=== PATIENT | female | born 1995 | race Caucasian/White ===

== ENCOUNTER 2019-09-27 04:11 | Inpatient (IN) | payer BC ==
[2019-09-27] MEDS ORDERED: Nalbuphine 10 MG/1 ML Vial IVPUSH PRN (05:21)
[2019-09-27] MEDS ORDERED: Sodium Chloride 0.9% 10 ML Syringe FLUSH PRN (05:21)
[2019-09-27] MEDS ORDERED: Oxytocin/Lactated Ringers 10 UNIT/1,000 ML BAG IV SCH ×2 (05:30→13:29)
[2019-09-27] MEDS ORDERED: ceFAZolin 2 GM in Premix Bag 1 BAG IV ONE (05:45)
[2019-09-27] MEDS: Lactated Ringers 1,000 ML IV SCH ×2 (05:45→07:37)
[2019-09-27] MEDS ORDERED: ceFAZolin 2 GM in Premix Bag 1 BAG IV SCH (06:00)
[2019-09-27] MEDS ORDERED: fentaNYL/Bupivacaine/NS 2 MCG-0.125% 250 ML EPIDUR PRN (06:26)
[2019-09-27] MEDS ORDERED: fentaNYL 100 MCG/2 ML SDV EPIDUR PRN (06:26)
[2019-09-27] MEDS ORDERED: Ondansetron 4 MG/2 ML SDV IVPUSH PRN (06:26)
[2019-09-27] MEDS ORDERED: ePHEDrine 50 MG/ML SDV IVPUSH PRN (06:26)
--- NOTE | 2019-09-27 06:28 | PCM.PREANE ---
Preanesthetic Assessment - Anesthesia/Transfusion/Family Hx Anesthesia History: Prior Anesthesia Without Reaction Family History of Anesthesia Reaction: No Transfusion History: No Prior Transfusion(s) Intubation History: Unknown - Review of Systems General: No Symptoms Pulmonary: No Symptoms Cardiovascular: No Symptoms Gastrointestinal: No Symptoms Neurological: No Symptoms Other: Reports: None - Physical Assessment NPO Status Date: 09/26/19 NPO Status Time: 20:30 Vital Signs: Last Vital Signs Temp 36.7 C 09/27/19 04:30 Pulse 93 09/27/19 04:30 Resp 16 09/27/19 04:30 BP 136/76 09/27/19 04:30 Pulse Ox 98 09/27/19 04:30 Height: 1.8 m Weight: 99.065 kg ASA Class: 2 Mental Status: Alert & Oriented x3 Airway Class: Mallampati = 2 Dentition: Reports: Normal Dentition, Caries Thyro-Mental Finger Breadths: 3 Mouth Opening Finger Breadths: 3 ROM/Head Extension: Full Lungs: Clear to Auscultation, Normal Respiratory Effort Cardiovascular: Regular Rate, Regular Rhythm, No Murmurs - Lab Values: Laboratory Last Values WBC 25.11 K/mm3 (3.98-10.04) H 09/27/19 05:38 RBC 4.32 M/mm3 (3.98-5.22) 09/27/19 05:38 Hgb 11.1 gm/dl (11.2-15.7) L 09/27/19 05:38 Hct 34.6 % (34.1-44.9) 09/27/19 05:38 MCV 80.1 fl (79.4-94.8) 09/27/19 05:38 MCH 25.7 pg (25.6-32.2) 09/27/19 05:38 MCHC 32.1 g/dl (32.2-35.5) L 09/27/19 05:38 RDW Std Deviation 42.3 fL (36.4-46.3) 09/27/19 05:38 Plt Count 376 K/mm3 (182-369) H 09/27/19 05:38 MPV 10.8 fl (9.4-12.3) 09/27/19 05:38 Neut % (Auto) 87.0 % (34.0-71.1) H 09/27/19 05:38 Lymph % (Auto) 6.5 % (19.3-51.7) L 09/27/19 05:38 [place] % (Auto) 5.6 % (4.7-12.5) 09/27/19 05:38 Eos % (Auto) 0.1 (0.7-5.8) L 09/27/19 05:38 Baso % (Auto) 0.2 % (0.1-1.2) 09/27/19 05:38 Neut # (Auto) 21.86 K/mm3 (1.56-6.13) H 09/27/19 05:38 Lymph # (Auto) 1.63 K/mm3 (1.18-3.74) 09/27/19 05:38 [place] # (Auto) 1.40 K/mm3 (0.24-0.36) H 09/27/19 05:38 Eos # (Auto) 0.02 K/mm3 (0.04-0.36) L 09/27/19 05:38 Baso # (Auto) 0.04 K/mm3 (0.01-0.08) 09/27/19 05:38 Urine Color Yellow (Yellow) 09/27/19 04:45 Urine Appearance Clear (Clear) 09/27/19 04:45 Urine pH 6.0 (5.0-8.0) 09/27/19 04:45 Ur Specific [place] > or = 1.030 (1.005-1.030) 09/27/19 04:45 Urine Protein Negative (Negative) 09/27/19 04:45 Urine Glucose (UA) Negative (Negative) 09/27/19 04:45 Urine Ketones Trace (Negative) H 09/27/19 04:45 Urine Occult Blood 1+ (Negative) H 09/27/19 04:45 Urine Nitrite Negative (Negative) 09/27/19 04:45 Urine Bilirubin Negative (Negative) 09/27/19 04:45 Urine Urobilinogen 0.2 (0.2-1.0) 09/27/19 04:45 Ur Leukocyte Esterase Negative (Negative) 09/27/19 04:45 Urine RBC 0-5 /hpf (0-5) 09/27/19 04:45 Urine WBC 0-5 /hpf (0-5) 09/27/19 04:45 Ur Epithelial Cells 0-5 /hpf (0-5) 09/27/19 04:45 Urine Bacteria Few /hpf (FEW) 09/27/19 04:45 Urine Mucus Few /hpf (FEW) 09/27/19 04:45 Membrane Rupture Positive H 09/27/19 04:56 Above labs reviewed and noted and within acceptable ranges to proceed with epidural if desired. - Allergies Allergies/Adverse Reactions: Allergies Allergy/AdvReac Type Severity Reaction Status Date / Time amoxicillin Allergy Swelling Verified 09/27/19 05:24 - Anesthesia Plan Pre-Op Medication Ordered: None - Acknowledgements Anesthesia Type Planned: Epidural Pt an Appropriate Candidate for the Planned Anesthesia: Yes Alternatives and Risks of Anesthesia Discussed w Pt/Guardian: Yes Pt/Guardian Understands and Agrees with Anesthesia Plan: Yes PreAnesthesia Questionnaire [employer] History: Reports: , Spontaneous - Past Surgical History Female Surgical History: Reports: D&C - SUBSTANCE USE Smoking Status *Q: Never Smoker Recreational Drug Use History: No - HOME MEDS Home Medications: Home Meds Pnv No.122/Iron/Folic Acid [ Multi Tablet] 1 each PO DAILY 09/27/19 [ History] - CURRENT (IN HOUSE) MEDS Current Meds: Current Medications Lactated Ringer's (Ringers, Lactated) 1,000 mls @ 100 mls/hr IV ASDIRECTED ERICA Last Admin: 09/27/19 05:45 Dose: 100 mls/hr Oxytocin/Lactated Ringer's (Pitocin In Lr 10 Units/1,000 Ml) 10 unit in 1,000 mls @ 500 mls/hr IV .CONTINUOUS ERICA Cefazolin Sodium/Dextrose 2 gm (/ Premix) 50 mls @ 100 mls/hr IV Q4HR ERICA Nalbuphine HCl (Nubain) 10 mg IVPUSH Q2H PRN PRN Reason: Pain Sodium Chloride (Saline Flush) 10 ml FLUSH ASDIRECTED PRN PRN Reason: Keep Vein Open Discontinued Medications Cefazolin Sodium/Dextrose 2 gm (/ Premix) 50 mls @ 100 mls/hr IV ONETIME ONE Stop: 09/27/19 06:14 Last Admin: 09/27/19 05:43 Dose: 100 mls/hr
[2019-09-27] MEDS ORDERED: Phenylephrine 1 MG in Sodium Chloride 0.9% 10 ML IV SCH (06:30)
--- NOTE | 2019-09-27 08:42 | PCM.LDHP ---
<David Martin - Last Filed: 09/27/19 09:47> L&D History of Present Illness - General Date of Service: 09/27/19 Admit Problem/Dx: Patient Status Order with Admit Dx/Problem 09/27/19 04:27 Patient Status [ADT] Routine 09/27/19 05:21 Patient Status [ADT] Routine Admission Diagnosis/Problem Admission Diagnosis/Problem Source of Information: Patient History Limitations: Reports: No Limitations - History of Present Illness Introduction:: Patient is a 24yo female at 37-3/7 weeks gestational age in active labor with spontaneous rupture of membranes. Pt began having contractions yesterday, increasing in intensity throughout the evening. Pt had spontaneous rupture of membranes around 0100 this morning. At that time her contractions were coming approximately every 5 minutes and lasting approximately 1 minute. She came to labor and delivery around 0400 this morning. Pain Score: 8 Present Illness Comments:: Sravani Vega is a 24yo female at 37 - 3/7 weeks gestation dated by definite LMP of 01/08/2019 (OLEG 10/15/2019) who presents with active labor after spontaneous rupture of membranes. She has had an overall uncomplicated and has had routine care with myself starting at 11 weeks gestational age. She had the TDaP vaccine on 08/12/2019. She declined the influenza vaccine. Her is complicated by: * GBS+ urinary tract infection * Rubella equivocal * History of recurrent miscarriages * Obesity labs Blood type: A+ Antibody screen: Negative First trimester hematocrit/hemoglobin: 38.8%/12.3g/dL on 02/06/2019 Platelets: 419,000 on 02/06/2019 Urine culture: Group B strep positive, mixed radha suggestive of contamination Rubella status: Equivocal Hepatitis B surface antigen: Negative RPR: Negative HIV: Negative Gonorrhea: Negative Chlamydia: Negative Anatomy ultrasound: 05/28/2019, normal anatomy, no abnormalities One hour glucose tolerance test: 167. 3-hour GTT normal. Second trimester hematocrit/hemoglobin: 32.1%/10.3 on 07/18/19 Platelets: 403 on 07/18/2019 GBS status: Positive Genetic testing: Declined. - Related Data Allergies/Adverse Reactions: Allergies Allergy/AdvReac Type Severity Reaction Status Date / Time amoxicillin Allergy Swelling Verified 09/27/19 05:24 Home Medications: Home Meds Pnv No.122/Iron/Folic Acid [ Multi Tablet] 1 each PO DAILY 09/27/19 [ History] Past Medical History [employer] History: Reports: , Spontaneous - Past Surgical History Female Surgical History: Reports: D&C Social & Family History - Family History Family Medical History: Noncontributory Endocrine/Metabolic: Reports: Diabetes, type II (Father, Paternal and maternal grandparents) Other Endocrine/Metabolic Family History: Sister has unspecified thyroid disease Oncologic: Reports: Brain (maternal uncle), Skin (Mother), Other (See Below) ( Mother- bladder cancer) - Tobacco Use Smoking Status *Q: Never Smoker - Recreational Drug Use Recreational Drug Use: No H&P Review of Systems - Review of Systems: Review Of Systems: See Below General: Reports: No Symptoms HEENT: Reports: No Symptoms Pulmonary: Reports: No Symptoms Cardiovascular: Reports: No Symptoms Gastrointestinal: Reports: No Symptoms Genitourinary: Reports: No Symptoms Musculoskeletal: Reports: No Symptoms Skin: Reports: No Symptoms Psychiatric: Reports: No Symptoms Neurological: Reports: No Symptoms Hematologic/Lymphatic: Reports: No Symptoms Immunologic: Reports: No Symptoms L&D Exam - Exam Exam: See Below - Vital Signs Vital Signs: Last Vital Signs Temp 98.1 F 09/27/19 04:30 Pulse 93 09/27/19 04:30 Resp 16 09/27/19 04:30 BP 136/76 09/27/19 04:30 Pulse Ox 98 09/27/19 04:30 Weight: 99.065 kg - Exam General: Alert, Oriented HEENT: Conjunctiva Clear, EACs Clear, EOMI, Hearing Intact, Mucosa Moist & [place] , Nares Patent, PERRLA Neck: Supple, Trachea Midline Lungs: Clear to Auscultation, Normal Respiratory Effort Cardiovascular: Regular Rate, Regular Rhythm GI/Abdominal Exam: Normal Bowel Sounds, Soft, Non-Tender, Pelvis Stable, Other ( Gravid) Rectal Exam: Deferred Genitourinary: Normal external exam Back Exam: Normal Inspection, Full Range of Motion Extremities: Normal Inspection, Non-Tender, No Pedal Edema, Normal Capillary Refill Skin: Warm, Dry, Intact Neurological: Cranial Nerves Intact, Reflexes Equal Bilateral Psychiatric: Alert, Normal Affect, Normal Mood - Patient Data Lab Results Last 24 hrs: Laboratory Results - last 24 hr 09/27/19 09/27/19 09/27/19 Range/Units 04:45 04:56 05:38 WBC 25.11 H (3.98-10.04) K/mm3 RBC 4.32 (3.98-5.22) M/mm3 Hgb 11.1 L (11.2-15.7) gm/dl Hct 34.6 (34.1-44.9) % MCV 80.1 (79.4-94.8) fl MCH 25.7 (25.6-32.2) pg MCHC 32.1 L (32.2-35.5) g/dl RDW Std Deviation 42.3 (36.4-46.3) fL Plt Count 376 H (182-369) K/mm3 MPV 10.8 (9.4-12.3) fl Neut % (Auto) 87.0 H (34.0-71.1) % Lymph % (Auto) 6.5 L (19.3-51.7) % [place] % (Auto) 5.6 (4.7-12.5) % Eos % (Auto) 0.1 L (0.7-5.8) Baso % (Auto) 0.2 (0.1-1.2) % Neut # (Auto) 21.86 H (1.56-6.13) K/mm3 Lymph # (Auto) 1.63 (1.18-3.74) K/mm3 [place] # (Auto) 1.40 H (0.24-0.36) K/mm3 Eos # (Auto) 0.02 L (0.04-0.36) K/mm3 Baso # (Auto) 0.04 (0.01-0.08) K/mm3 Manual Slide Review Abnormal smear Urine Color Yellow (Yellow) Urine Appearance Clear (Clear) Urine pH 6.0 (5.0-8.0) Ur Specific [place] > or = 1.030 (1.005-1.030) Urine Protein Negative (Negative) Urine Glucose (UA) Negative (Negative) Urine Ketones Trace H (Negative) Urine Occult Blood 1+ H (Negative) Urine Nitrite Negative (Negative) Urine Bilirubin Negative (Negative) Urine Urobilinogen 0.2 (0.2-1.0) Ur Leukocyte Esterase Negative (Negative) Urine RBC 0-5 (0-5) /hpf Urine WBC 0-5 (0-5) /hpf Ur Epithelial Cells 0-5 (0-5) /hpf Urine Bacteria Few (FEW) /hpf Urine Mucus Few (FEW) /hpf Membrane Rupture Positive H Result Diagrams: 09/27/19 05:38 - Problem List (1) 37 weeks gestation of SNOMED Code(s): 00207714 ICD Code: Z3A.37 - 37 WEEKS GESTATION OF Status: Acute Current Visit: Yes (2) GBS (group B streptococcus) UTI complicating SNOMED Code(s): 232299041, 50436539311762 ICD Code: O23.40 - UNSP INFECTION OF URINARY TRACT IN , UNSP TRIMESTER; B95.1 - STREPTOCOCCUS, GROUP B, CAUSING DISEASES CLASSD ELSWHR Status: Acute Current Visit: Yes (3) History of miscarriage SNOMED Code(s): 675651602 ICD Code: Z87.59 - PERSONAL HISTORY OF COMP OF PREG, CHLDBRTH AND THE PUERP Status: Acute Current Visit: Yes Problem List Initiated/Reviewed/Updated: Yes Orders Last 24hrs: Active Orders 24 hr Category Date Time Status Patient Status [ADT] Routine ADT 09/27/19 05:21 Active Activity as Tolerated [RC] PFP Care 09/27/19 05:21 Active Communication Order [RC] ASDIRECTED Care 09/27/19 05:21 Active Notify Provider [RC] ASDIRECTED Care 09/27/19 06:26 Active Notify Provider [RC] PFP Care 09/27/19 05:21 Active Notify Provider [RC] PRN Care 09/27/19 05:21 Active Oxygen Therapy [RC] ASDIRECTED Care 09/27/19 06:26 Active Peripheral IV Care [RC] Q2HR Care 09/27/19 05:21 Active Pulse Oximetry [RC] ASDIRECTED Care 09/27/19 06:26 Active Regular Diet [DIET] Diet 09/27/19 Breakfast Active RAPID PLASMA REAGIN,RPR [CHEM] Routine Lab 09/27/19 05:38 Received Bupivicaine/fentaNYL/NS [fentaNYL/Bupivacaine/NS 2 MCG- Med 09/27/19 06:26 Active 0.125% 250 ML] 0 ml EPIDUR CONTINUOUS PRN Lactated Ringers [Ringers, Lactated] 1,000 ml Med 09/27/19 05:30 Active IV ASDIRECTED Nalbuphine [Nubain] Med 09/27/19 05:21 Active 10 mg IVPUSH Q2H PRN Ondansetron [Zofran] Med 09/27/19 06:26 Active 4 mg IVPUSH ONETIME PRN Oxytocin/Lactated Ringers [Pitocin in LR 10 Units/1,000 Med 09/27/19 05:30 Active ML] 10 unit in 1,000 ml IV .CONTINUOUS Phenylephrine [Rico-Synephrine] 1 mg Med 09/27/19 06:30 Active Sodium Chloride 0.9% [Normal Saline] 10 ml IV TITRATE Sodium Chloride 0.9% [Saline Flush] Med 09/27/19 05:21 Active 10 ml FLUSH ASDIRECTED PRN ceFAZolin [Ancef] 1 gm Med 09/27/19 13:45 Active Premix Bag 1 bag IV Q8H ePHEDrine [ePHEDrine sulfate] Med 09/27/19 06:26 Active 5 mg IVPUSH ASDIRECTED PRN fentaNYL [Sublimaze] Med 09/27/19 06:26 Active 100 mcg EPIDUR Q3H PRN Electronic Heart Tones Ext w TOCO [WOMSER] Oth 09/27/19 05:21 Ordered Routine Electronic Heart Tones Internal [WOMSER] Per Unit Oth 09/27/19 05:21 Ordered Routine Peripheral IV Insertion Adult [OM.PC] Routine Oth 09/27/19 05:21 Ordered Resuscitation Status Routine Resus Stat 09/27/19 04:27 Ordered Medication Orders Ephedrine Sulfate (Ephedrine Sulfate) 5 mg IVPUSH ASDIRECTED PRN PRN Reason: Hypotension Fentanyl (Sublimaze) 100 mcg EPIDUR Q3H PRN PRN Reason: Pain Last Admin: 09/27/19 06:39 Dose: 100 mcg Fentanyl/Bupivacaine HCl (Fentanyl/Bupivacaine/Ns 2 Mcg-0.125% 250 Ml) 0 ml EPIDUR CONTINUOUS PRN PRN Reason: Pain Last Admin: 09/27/19 06:39 Dose: 250 ml Lactated Ringer's (Ringers, Lactated) 1,000 mls @ 100 mls/hr IV ASDIRECTED ERICA Last Admin: 09/27/19 07:37 Dose: 100 mls/hr Infusion: 09/27/19 07:37 Dose: 100 mls/hr Admin: 09/27/19 05:45 Dose: 100 mls/hr Oxytocin/Lactated Ringer's (Pitocin In Lr 10 Units/1,000 Ml) 10 unit in 1,000 mls @ 500 mls/hr IV .CONTINUOUS ERICA Phenylephrine HCl 1 mg/ Sodium (Chloride) 10.1 mls @ 1 mls/sec IV TITRATE ERICA; Protocol Cefazolin Sodium/Dextrose 1 gm (/ Premix) 50 mls @ 100 mls/hr IV Q8H ERICA Nalbuphine HCl (Nubain) 10 mg IVPUSH Q2H PRN PRN Reason: Pain Ondansetron HCl (Zofran) 4 mg IVPUSH ONETIME PRN PRN Reason: Nausea/Vomiting Sodium Chloride (Saline Flush) 10 ml FLUSH ASDIRECTED PRN PRN Reason: Keep Vein Open Assessment/Plan Comment:: Refer to observation for elective induction of labor Start Pitocin for augmentation of labor Cephalexin IV 2 gram loading dose plus 1 g every 8 hours of labor Continuous monitoring Place IV and have Lactated Ringer's at 125 ml/hr May have small amounts of regular diet Activity as tolerated May have epidural as desired Plans to breast-feed after delivery MMR vaccine post delivery due to rubella equivocal status Anticipate vaginal delivery unless otherwise indicated David Martin, MS3 09/27/2019 9:43am <Braden Acharya - Last Filed: 09/27/19 10:43> L&D History of Present Illness - General Admit Problem/Dx: Patient Status Order with Admit Dx/Problem 09/27/19 04:27 Patient Status [ADT] Routine 09/27/19 05:21 Patient Status [ADT] Routine Admission Diagnosis/Problem Admission Diagnosis/Problem L&D Exam - Vital Signs Vital Signs: Last Vital Signs Temp 36.7 C 09/27/19 04:30 Pulse 93 09/27/19 04:30 Resp 16 09/27/19 04:30 BP 136/76 09/27/19 04:30 Pulse Ox 98 09/27/19 04:30 - Patient Data Lab Results Last 24 hrs: Laboratory Results - last 24 hr 09/27/19 09/27/19 09/27/19 Range/Units 04:45 04:56 05:38 WBC 25.11 H (3.98-10.04) K/mm3 RBC 4.32 (3.98-5.22) M/mm3 Hgb 11.1 L (11.2-15.7) gm/dl Hct 34.6 (34.1-44.9) % MCV 80.1 (79.4-94.8) fl MCH 25.7 (25.6-32.2) pg MCHC 32.1 L (32.2-35.5) g/dl RDW Std Deviation 42.3 (36.4-46.3) fL Plt Count 376 H (182-369) K/mm3 MPV 10.8 (9.4-12.3) fl Neut % (Auto) 87.0 H (34.0-71.1) % Lymph % (Auto) 6.5 L (19.3-51.7) % [place] % (Auto) 5.6 (4.7-12.5) % Eos % (Auto) 0.1 L (0.7-5.8) Baso % (Auto) 0.2 (0.1-1.2) % Neut # (Auto) 21.86 H (1.56-6.13) K/mm3 Lymph # (Auto) 1.63 (1.18-3.74) K/mm3 [place] # (Auto) 1.40 H (0.24-0.36) K/mm3 Eos # (Auto) 0.02 L (0.04-0.36) K/mm3 Baso # (Auto) 0.04 (0.01-0.08) K/mm3 Manual Slide Review Abnormal smear Urine Color Yellow (Yellow) Urine Appearance Clear (Clear) Urine pH 6.0 (5.0-8.0) Ur Specific [place] > or = 1.030 (1.005-1.030) Urine Protein Negative (Negative) Urine Glucose (UA) Negative (Negative) Urine Ketones Trace H (Negative) Urine Occult Blood 1+ H (Negative) Urine Nitrite Negative (Negative) Urine Bilirubin Negative (Negative) Urine Urobilinogen 0.2 (0.2-1.0) Ur Leukocyte Esterase Negative (Negative) Urine RBC 0-5 (0-5) /hpf Urine WBC 0-5 (0-5) /hpf Ur Epithelial Cells 0-5 (0-5) /hpf Urine Bacteria Few (FEW) /hpf Urine Mucus Few (FEW) /hpf Membrane Rupture Positive H Result Diagrams: 09/27/19 05:38 - Problem List (1) Rubella non-immune status, antepartum SNOMED Code(s): 400999547 ICD Code: O99.89 - OTH DISEASES AND CONDITIONS COMPL PREG/CHLDBRTH; Z28.3 - UNDERIMMUNIZATION STATUS Status: Acute Current Visit: Yes (2) 37 weeks gestation of SNOMED Code(s): 84972022 ICD Code: Z3A.37 - 37 WEEKS GESTATION OF Status: Acute Current Visit: Yes (3) GBS (group B streptococcus) UTI complicating SNOMED Code(s): 788113416, [id number] ICD Code: O23.40 - UNSP INFECTION OF URINARY TRACT IN , UNSP TRIMESTER; B95.1 - STREPTOCOCCUS, GROUP B, CAUSING DISEASES CLASSD ELSWHR Status: Acute Current Visit: Yes (4) History of miscarriage SNOMED Code(s): 938494230 ICD Code: Z87.59 - PERSONAL HISTORY OF COMP OF PREG, CHLDBRTH AND THE PUERP Status: Acute Current Visit: Yes Orders Last 24hrs: Active Orders 24 hr Category Date Time Status Patient Status [ADT] Routine ADT 09/27/19 05:21 Active Activity as Tolerated [RC] PFP Care 09/27/19 05:21 Active Communication Order [RC] ASDIRECTED Care 09/27/19 05:21 Active Notify Provider [RC] ASDIRECTED Care 09/27/19 06:26 Active Notify Provider [RC] PFP Care 09/27/19 05:21 Active Notify Provider [RC] PRN Care 09/27/19 05:21 Active Oxygen Therapy [RC] ASDIRECTED Care 09/27/19 06:26 Active Peripheral IV Care [RC] Q2HR Care 09/27/19 05:21 Active Pulse Oximetry [RC] ASDIRECTED Care 09/27/19 06:26 Active Regular Diet [DIET] Diet 09/27/19 Breakfast Active RAPID PLASMA REAGIN,RPR [CHEM] Routine Lab 09/27/19 05:38 Received Bupivicaine/fentaNYL/NS [fentaNYL/Bupivacaine/NS 2 MCG- Med 09/27/19 06:26 Active 0.125% 250 ML] 0 ml EPIDUR CONTINUOUS PRN Lactated Ringers [Ringers, Lactated] 1,000 ml Med 09/27/19 05:30 Active IV ASDIRECTED Nalbuphine [Nubain] Med 09/27/19 05:21 Active 10 mg IVPUSH Q2H PRN Ondansetron [Zofran] Med 09/27/19 06:26 Active 4 mg IVPUSH ONETIME PRN Oxytocin/Lactated Ringers [Pitocin in LR 10 Units/1,000 Med 09/27/19 05:30 Active ML] 10 unit in 1,000 ml IV .CONTINUOUS Phenylephrine [Rico-Synephrine] 1 mg Med 09/27/19 06:30 Active Sodium Chloride 0.9% [Normal Saline] 10 ml IV TITRATE Sodium Chloride 0.9% [Saline Flush] Med 09/27/19 05:21 Active 10 ml FLUSH ASDIRECTED PRN ceFAZolin [Ancef] 1 gm Med 09/27/19 13:45 Active Premix Bag 1 bag IV Q8H ePHEDrine [ePHEDrine sulfate] Med 09/27/19 06:26 Active 5 mg IVPUSH ASDIRECTED PRN fentaNYL [Sublimaze] Med 09/27/19 06:26 Active 100 mcg EPIDUR Q3H PRN Electronic Heart Tones Ext w TOCO [WOMSER] Oth 09/27/19 05:21 Ordered Routine Electronic Heart Tones Internal [WOMSER] Per Unit Oth 09/27/19 05:21 Ordered Routine Peripheral IV Insertion Adult [OM.PC] Routine Oth 09/27/19 05:21 Ordered Resuscitation Status Routine Resus Stat 09/27/19 04:27 Ordered Medication Orders Ephedrine Sulfate (Ephedrine Sulfate) 5 mg IVPUSH ASDIRECTED PRN PRN Reason: Hypotension Fentanyl (Sublimaze) 100 mcg EPIDUR Q3H PRN PRN Reason: Pain Last Admin: 09/27/19 06:39 Dose: 100 mcg Fentanyl/Bupivacaine HCl (Fentanyl/Bupivacaine/Ns 2 Mcg-0.125% 250 Ml) 0 ml EPIDUR CONTINUOUS PRN PRN Reason: Pain Last Admin: 09/27/19 06:39 Dose: 250 ml Lactated Ringer's (Ringers, Lactated) 1,000 mls @ 100 mls/hr IV ASDIRECTED ERICA Last Admin: 09/27/19 07:37 Dose: 100 mls/hr Infusion: 09/27/19 07:37 Dose: 100 mls/hr Admin: 09/27/19 05:45 Dose: 100 mls/hr Oxytocin/Lactated Ringer's (Pitocin In Lr 10 Units/1,000 Ml) 10 unit in 1,000 mls @ 500 mls/hr IV .CONTINUOUS ERICA Phenylephrine HCl 1 mg/ Sodium (Chloride) 10.1 mls @ 1 mls/sec IV TITRATE ERICA; Protocol Cefazolin Sodium/Dextrose 1 gm (/ Premix) 50 mls @ 100 mls/hr IV Q8H ERICA Nalbuphine HCl (Nubain) 10 mg IVPUSH Q2H PRN PRN Reason: Pain Ondansetron HCl (Zofran) 4 mg IVPUSH ONETIME PRN PRN Reason: Nausea/Vomiting Sodium Chloride (Saline Flush) 10 ml FLUSH ASDIRECTED PRN PRN Reason: Keep Vein Open Assessment/Plan Comment:: I have seen and evaluated the patient with the medical student. I agree with the assessment and plan as per the note above. Braden Acharya M.D. 10:43 AM 09/27/2019
[2019-09-27] MEDS ORDERED: Lidocaine 1% 50 ML MDV INJECT ONE (13:00)
--- NOTE | 2019-09-27 13:22 | PCM.DEL ---
L & D Note - General Info Date of Service: 09/27/19 Mother's Due Date: 10/15/19 - Delivery Note Labor: Spontaneous Delivery Outcome: Livebirth Infant Delivery Method: Spontaneous Vaginal Delivery-Single Presentation: Right Occiput Anterior (ROOPA) Nuchal Cord: Present (tight and not reduced prior to delivery) Prep: Povidone-Iodine (Betadine Anesthesia Type: Epidural Anesthetic: Lidocaine (Xylocaine) 1% Plain (10 mL) Local Anesthetic Volume: Other (10 mL) Amniotic Fluid Description: Clear Episiotomy Type: None Laceration: 2nd Degree (midline perineal, repaired with 3-0 Vicryl), Periurethral (bilateral, hemostatic and not repaired) Suture type: Vicryl Suture size: 3-0 Placenta: Intact, Spontaneous Cord: 3 Vessels Estimated Blood Loss: 300 Resuscitation Needed: Yes : Suctioned, Bulb Syringe, Stimulated, Warmed, Renovo Used, Warmer Used Provider: Braden Acharya Score 1 min: 7 Score 5 min: 9 Second Stage Interventions: Reports: Pushing Effectively, Pushing, Stirrups/Leg Supports Delivery Comments (Free Text/Narrative):: Stage I: Susana Vega was admitted for spontaneous rupture of membranes. On admission her cervix was dilated to 4 cm. She was GBS positive with GBS bacteriuria. She has an allergy to amoxicillin and was treated with Ancef 2 g IV and received a total of 1 dose prior to delivery. She was given an epidural for anesthesia. She progressed to complete and pushing. Stage II: On 09/27/2019 she had a normal vaginal delivery of a live male infant at 12:43. Apgars of 7 & 9. Weight of 3050 g (6 lbs 11.6 oz). Length of 21.5 inches. There was a single tight nuchal cord that was not reduced prior to delivery. was delivered in ROOPA position. The cord was doubly clamped and cut by father of the infant. was placed on mother's abdomen and taken to the warmer for further resuscitation. Stage III: She had a spontaneous delivery of an intact placenta in Maribel presentation. Three vessel cord. She was given pitocin and fundal massage. She had a second-degree midline perineal laceration that was repaired with 3-0 Vicryl. There were bilateral periurethral lacerations that were hemostatic and not repaired. Mom and baby were stable to recovery. EBL of 300 mL. Braden Acharya MD 1:21 PM 09/27/2019 - General Info Date of Service: 09/27/19 - Patient Data Vitals - Most Recent: Last Vital Signs Temp 36.7 C 09/27/19 04:30 Pulse 93 09/27/19 04:30 Resp 16 09/27/19 04:30 BP 136/76 09/27/19 04:30 Pulse Ox 98 09/27/19 04:30 Weight - Most Recent: 99.065 kg I&O - Last 24 Hours: Intake & Output 09/26/19 09/27/19 09/27/19 22:59 06:59 14:59 Intake Total 1600 Output Total 525 Balance 1075 Lab Results Last 24 Hours: Laboratory Results - last 24 hr 09/27/19 09/27/19 09/27/19 Range/Units 04:45 04:56 05:38 WBC 25.11 H (3.98-10.04) K/mm3 RBC 4.32 (3.98-5.22) M/mm3 Hgb 11.1 L (11.2-15.7) gm/dl Hct 34.6 (34.1-44.9) % MCV 80.1 (79.4-94.8) fl MCH 25.7 (25.6-32.2) pg MCHC 32.1 L (32.2-35.5) g/dl RDW Std Deviation 42.3 (36.4-46.3) fL Plt Count 376 H (182-369) K/mm3 MPV 10.8 (9.4-12.3) fl Neut % (Auto) 87.0 H (34.0-71.1) % Lymph % (Auto) 6.5 L (19.3-51.7) % Worth % (Auto) 5.6 (4.7-12.5) % Eos % (Auto) 0.1 L (0.7-5.8) Baso % (Auto) 0.2 (0.1-1.2) % Neut # (Auto) 21.86 H (1.56-6.13) K/mm3 Lymph # (Auto) 1.63 (1.18-3.74) K/mm3 Worth # (Auto) 1.40 H (0.24-0.36) K/mm3 Eos # (Auto) 0.02 L (0.04-0.36) K/mm3 Baso # (Auto) 0.04 (0.01-0.08) K/mm3 Manual Slide Review Abnormal smear Urine Color Yellow (Yellow) Urine Appearance Clear (Clear) Urine pH 6.0 (5.0-8.0) Ur Specific [place] > or = 1.030 (1.005-1.030) Urine Protein Negative (Negative) Urine Glucose (UA) Negative (Negative) Urine Ketones Trace H (Negative) Urine Occult Blood 1+ H (Negative) Urine Nitrite Negative (Negative) Urine Bilirubin Negative (Negative) Urine Urobilinogen 0.2 (0.2-1.0) Ur Leukocyte Esterase Negative (Negative) Urine RBC 0-5 (0-5) /hpf Urine WBC 0-5 (0-5) /hpf Ur Epithelial Cells 0-5 (0-5) /hpf Urine Bacteria Few (FEW) /hpf Urine Mucus Few (FEW) /hpf Membrane Rupture Positive H Med Orders - Current: Current Medications Ephedrine Sulfate (Ephedrine Sulfate) 5 mg IVPUSH ASDIRECTED PRN PRN Reason: Hypotension Fentanyl (Sublimaze) 100 mcg EPIDUR Q3H PRN PRN Reason: Pain Last Admin: 09/27/19 06:39 Dose: 100 mcg Fentanyl/Bupivacaine HCl (Fentanyl/Bupivacaine/Ns 2 Mcg-0.125% 250 Ml) 0 ml EPIDUR CONTINUOUS PRN PRN Reason: Pain Last Admin: 09/27/19 06:39 Dose: 250 ml Lactated Ringer's (Ringers, Lactated) 1,000 mls @ 100 mls/hr IV ASDIRECTED ERICA Last Admin: 09/27/19 07:37 Dose: 100 mls/hr Oxytocin/Lactated Ringer's (Pitocin In Lr 10 Units/1,000 Ml) 10 unit in 1,000 mls @ 500 mls/hr IV .CONTINUOUS ERICA Last Admin: 09/27/19 12:47 Dose: 500 mls/hr Phenylephrine HCl 1 mg/ Sodium (Chloride) 10.1 mls @ 1 mls/sec IV TITRATE ERICA; Protocol Cefazolin Sodium/Dextrose 1 gm (/ Premix) 50 mls @ 100 mls/hr IV Q8H ERICA Nalbuphine HCl (Nubain) 10 mg IVPUSH Q2H PRN PRN Reason: Pain Ondansetron HCl (Zofran) 4 mg IVPUSH ONETIME PRN PRN Reason: Nausea/Vomiting Sodium Chloride (Saline Flush) 10 ml FLUSH ASDIRECTED PRN PRN Reason: Keep Vein Open Discontinued Medications Cefazolin Sodium/Dextrose 2 gm (/ Premix) 50 mls @ 100 mls/hr IV Q4HR [facility] Last Admin: 09/27/19 08:23 Dose: Not Given Cefazolin Sodium/Dextrose 2 gm (/ Premix) 50 mls @ 100 mls/hr IV ONETIME ONE Stop: 09/27/19 06:14 Last Admin: 09/27/19 05:43 Dose: 100 mls/hr Lidocaine HCl (Xylocaine 1%) 10 ml INJECT ONETIME ONE Stop: 09/27/19 13:01 Last Admin: 09/27/19 13:06 Dose: 10 ml - Problem List & Annotations (1) Rubella non-immune status, antepartum SNOMED Code(s): 808697969 Code(s): O99.89 - OTH DISEASES AND CONDITIONS COMPL PREG/CHLDBRTH; Z28.3 - UNDERIMMUNIZATION STATUS Status: Acute Current Visit: Yes (2) 37 weeks gestation of SNOMED Code(s): 21146371 Code(s): Z3A.37 - 37 WEEKS GESTATION OF Status: Acute Current Visit: Yes (3) GBS (group B streptococcus) UTI complicating SNOMED Code(s): 954884694, 51813146798421 Code(s): O23.40 - UNSP INFECTION OF URINARY TRACT IN , UNSP TRIMESTER; B95.1 - STREPTOCOCCUS, GROUP B, CAUSING DISEASES CLASSD ELSWHR Status: Acute Current Visit: Yes (4) History of miscarriage SNOMED Code(s): 269751739 Code(s): Z87.59 - PERSONAL HISTORY OF COMP OF PREG, CHLDBRTH AND THE PUERP Status: Acute Current Visit: Yes (5) Vaginal delivery SNOMED Code(s): 645290786 Code(s): O80 - ENCOUNTER FOR FULL-TERM UNCOMPLICATED DELIVERY Status: Acute Current Visit: Yes (6) Second degree perineal laceration during delivery SNOMED Code(s): 8088819 Code(s): O70.1 - SECOND DEGREE PERINEAL LACERATION DURING DELIVERY Status: Acute Current Visit: Yes (7) Laceration of periurethral tissue with delivery SNOMED Code(s): 255177204, 537311873 Code(s): O71.89 - OTHER SPECIFIED OBSTETRIC TRAUMA Status: Acute Current Visit: Yes - Problem List Review Problem List Initiated/Reviewed/Updated: Yes - My Orders Last 24 Hours: My Active Orders 09/27/19 04:27 Resuscitation Status Routine 09/27/19 05:21 Patient Status [ADT] Routine Activity as Tolerated [RC] PFP Communication Order [RC] ASDIRECTED Notify Provider [RC] PFP Notify Provider [RC] PRN Peripheral IV Care [RC] Q2HR Nalbuphine [Nubain] 10 mg IVPUSH Q2H PRN Sodium Chloride 0.9% [Saline Flush] 10 ml FLUSH ASDIRECTED PRN Electronic Heart Tones Ext w TOCO [WOMSER] Routine Electronic Heart Tones Internal [WOMSER] Per Unit Routine Peripheral IV Insertion Adult [OM.PC] Routine 09/27/19 05:30 Lactated Ringers [Ringers, Lactated] 1,000 ml IV ASDIRECTED Oxytocin/Lactated Ringers [Pitocin in LR 10 Units/1,000 ML] 10 unit in 1,000 ml IV .CONTINUOUS 09/27/19 05:38 RAPID PLASMA REAGIN,RPR [CHEM] Routine 09/27/19 13:10 Patient Status Manage Transfer [TRANSFER] Routine 09/27/19 13:45 ceFAZolin [Ancef] 1 gm Premix Bag 1 bag IV Q8H 09/27/19 Breakfast Regular Diet [DIET] - Plan Plan:: Admit to inpatient following normal spontaneous vaginal delivery Continue Pitocin per unit protocol following delivery of placenta and lactated Ringer's until tolerating regular diet Regular diet Vitals per unit routine Ibuprofen and Tylenol for pain control Assist with breast-feeding as needed Continue to monitor lochia MMR vaccine for rubella equivocal status Anticipate discharge home on day #2 Braden Acharya MD 1:21 PM 09/27/2019
[2019-09-27] MEDS ORDERED: Acetaminophen 325 MG Tab PO PRN (13:29)
[2019-09-27] MEDS ORDERED: Benzocaine/Menthol 20%-0.5% Spray 56 GM Canister TOP PRN (13:29)
[2019-09-27] MEDS ORDERED: Magnesium Hydroxide 400 MG/5 ML Susp 30 ML Cup PO PRN (13:29)
[2019-09-27] MEDS ORDERED: Measles, Mumps & Rubella Vaccine 0.5 ML SDV SUBCUT ONE (13:29)
[2019-09-27] MEDS ORDERED: Witch Hazel Medicated Pads 40/Jar TOP PRN (13:29)
[2019-09-27] MEDS ORDERED: Hydrocortisone Acetate 25 MG Supp RECTAL PRN (13:29)
[2019-09-27] MEDS ORDERED: ceFAZolin 1 GM in Premix Bag 1 BAG IV SCH (13:45)
[2019-09-27] MEDS ORDERED: Bupivacaine 0.25% 10 ML SDV ONE (14:00)
[2019-09-27] MEDS: Ibuprofen 600 MG Tab PO PRN (15:54)
[2019-09-28] MEDS: Ibuprofen 600 MG Tab PO PRN ×3 (00:17→20:49)
--- NOTE | 2019-09-28 08:37 | PCM.PNPP ---
<David Martin - Last Filed: 09/28/19 08:46> - General Info Date of Service: 09/28/19 Admission Dx/Problem (Free Text): Patient Status Order with Admit Dx/Problem 09/27/19 04:27 Patient Status [ADT] Routine 09/27/19 05:21 Patient Status [ADT] Routine Admission Diagnosis/Problem Admission Diagnosis/Problem Subjective Update: Pt is doing well today. She states she is very sore, but it is manageable. 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 She is tolerating oral intake well with no nausea and vomiting. She has been able to urinate, but has not yet had a bowel movement. She has been ambulating well and is having no leg pain and minimal swelling. She is and that has been going well. Functional Status: Reports: Pain Controlled - Review of Systems General: Reports: No Symptoms HEENT: Reports: No Symptoms Pulmonary: Reports: No Symptoms Cardiovascular: Reports: No Symptoms Gastrointestinal: Reports: No Symptoms Genitourinary: Reports: Burning, Pain Musculoskeletal: Reports: No Symptoms Skin: Reports: No Symptoms Neurological: Reports: No Symptoms Psychiatric: Reports: No Symptoms - General Info Date of Service: 09/28/19 - Patient Data Vital Signs - Most Recent: Last Vital Signs Temp 97.3 F 09/28/19 03:31 Pulse 80 09/28/19 03:31 Resp 14 09/28/19 03:31 BP 134/77 09/28/19 03:31 Pulse Ox 100 09/28/19 03:31 Weight - Most Recent: 99.065 kg I&O - Last 24 Hours: Intake & Output 09/27/19 09/28/19 09/28/19 23:59 06:59 14:59 Intake Total Balance Lab Results - Last 24 Hours: Laboratory Results - last 24 hr 09/27/19 09/28/19 Range/Units 05:38 05:40 WBC 25.23 H (3.98-10.04) K/mm3 RBC 3.58 L (3.98-5.22) M/mm3 Hgb 9.0 L D (11.2-15.7) gm/dl Hct 29.1 L (34.1-44.9) % MCV 81.3 (79.4-94.8) fl MCH 25.1 L (25.6-32.2) pg MCHC 30.9 L (32.2-35.5) g/dl RDW Std Deviation 42.5 (36.4-46.3) fL Plt Count 333 (182-369) K/mm3 MPV 10.9 (9.4-12.3) fl Neut % (Auto) 71.8 H (34.0-71.1) % Lymph % (Auto) 18.6 L (19.3-51.7) % Scott % (Auto) 8.2 (4.7-12.5) % Eos % (Auto) 0.3 L (0.7-5.8) Baso % (Auto) 0.3 (0.1-1.2) % Neut # (Auto) 18.13 H (1.56-6.13) K/mm3 Lymph # (Auto) 4.69 H (1.18-3.74) K/mm3 Scott # (Auto) 2.07 H (0.24-0.36) K/mm3 Eos # (Auto) 0.08 (0.04-0.36) K/mm3 Baso # (Auto) 0.07 (0.01-0.08) K/mm3 Manual Slide Review Abnormal smear RPR Non-reactive (NONREACTIVE) Med Orders - Current: Current Medications Acetaminophen (Tylenol) 650 mg PO Q6H PRN PRN Reason: mild pain or fever Benzocaine/Menthol (Dermoplast Pain Relief [place]) 0 gm TOP ASDIRECTED PRN PRN Reason: Perineal Comfort Measure Last Admin: 09/27/19 14:39 Dose: 1 applic Docusate Sodium (Colace) 100 mg PO BID PRN PRN Reason: Constipation Hydrocortisone Acetate (Anucort-Hc) 25 mg RECTAL BID PRN PRN Reason: Hemorrhoid pain Oxytocin/Lactated Ringer's (Pitocin In Lr 10 Units/1,000 Ml) 10 unit in 1,000 mls @ 100 mls/hr IV TITRATE ERICA; Protocol Ibuprofen (Motrin) 600 mg PO Q6H PRN PRN Reason: Mild pain or fever Last Admin: 09/28/19 06:44 Dose: 600 mg Magnesium Hydroxide (Milk Of Magnesia) 30 ml PO BEDTIME PRN PRN Reason: Constipation Prenat Multivit/[place]/Iron/Folic Ac ( Plus Iron) 1 each PO DAILY [facility] Suellen Marie (Tucks) 1 pad TOP ASDIRECTED PRN PRN Reason: Perineal Comfort Measure Last Admin: 09/27/19 14:39 Dose: 1 applic Discontinued Medications Bupivacaine HCl (Sensorcaine-Mpf 0.25%) 10 ml .ROUTE .STK-MED ONE Stop: 09/27/19 14:01 Ephedrine Sulfate (Ephedrine Sulfate) 5 mg IVPUSH ASDIRECTED PRN PRN Reason: Hypotension Fentanyl (Sublimaze) 100 mcg EPIDUR Q3H PRN PRN Reason: Pain Last Admin: 09/27/19 06:39 Dose: 100 mcg Fentanyl/Bupivacaine HCl (Fentanyl/Bupivacaine/Ns 2 Mcg-0.125% 250 Ml) 0 ml EPIDUR CONTINUOUS PRN PRN Reason: Pain Last Admin: 09/27/19 06:39 Dose: 250 ml Lactated Ringer's (Ringers, Lactated) 1,000 mls @ 100 mls/hr IV ASDIRECTED ERICA Last Admin: 09/27/19 07:37 Dose: 100 mls/hr Oxytocin/Lactated Ringer's (Pitocin In Lr 10 Units/1,000 Ml) 10 unit in 1,000 mls @ 500 mls/hr IV .CONTINUOUS ERICA Last Admin: 09/27/19 12:47 Dose: 500 mls/hr Cefazolin Sodium/Dextrose 2 gm (/ Premix) 50 mls @ 100 mls/hr IV Q4HR ERICA Last Admin: 09/27/19 08:23 Dose: Not Given Cefazolin Sodium/Dextrose 2 gm (/ Premix) 50 mls @ 100 mls/hr IV ONETIME ONE Stop: 09/27/19 06:14 Last Admin: 09/27/19 05:43 Dose: 100 mls/hr Phenylephrine HCl 1 mg/ Sodium (Chloride) 10.1 mls @ 1 mls/sec IV TITRATE ERICA; Protocol Cefazolin Sodium/Dextrose 1 gm (/ Premix) 50 mls @ 100 mls/hr IV Q8H [facility] Lidocaine HCl (Xylocaine 1%) 10 ml INJECT ONETIME ONE Stop: 09/27/19 13:01 Last Admin: 09/27/19 13:06 Dose: 10 ml Measles/Mumps/Rubella Vaccine Live (M-M-R Ii Vaccine) 0.5 ml SUBCUT .ONCE ONE Stop: 09/27/19 13:30 Nalbuphine HCl (Nubain) 10 mg IVPUSH Q2H PRN PRN Reason: Pain Ondansetron HCl (Zofran) 4 mg IVPUSH ONETIME PRN PRN Reason: Nausea/Vomiting Sodium Chloride (Saline Flush) 10 ml FLUSH ASDIRECTED PRN PRN Reason: Keep Vein Open - Infant Interaction Support Person: - Recovery Exam Fundal Tone: Firm Fundal Level: At Umbilicus Fundal Placement: Midline Lochia Amount: Small Lochia Color: Rubra/Red Perineum Description: Other (see below) Other Perinuem Description: second deg lac w/repair Episiotomy/Laceration: Approximated Bladder Status: Nonpalpable, Voiding Urinary Elimination: Voided - Exam General: Alert, Oriented HEENT: Pupils Equal Neck: Supple Lungs: Clear to Auscultation, Normal Respiratory Effort Cardiovascular: Regular Rate, Regular Rhythm GI/Abdominal Exam: Normal Bowel Sounds, Soft, Non-Tender Extremities: Normal Inspection, Normal Range of Motion, Non-Tender, Pedal Edema (mild) Skin: Warm, Dry, Intact Wound/Incisions: Healing Well Neurological: No New Focal Deficit Psy/Mental Status: Alert, Normal Affect, Normal Mood - Problem List & Annotations (1) 37 weeks gestation of SNOMED Code(s): 51333777 Code(s): Z3A.37 - 37 WEEKS GESTATION OF Status: Acute Current Visit: Yes (2) GBS (group B streptococcus) UTI complicating SNOMED Code(s): 497471736, 19715815806071 Code(s): O23.40 - UNSP INFECTION OF URINARY TRACT IN , UNSP TRIMESTER; B95.1 - STREPTOCOCCUS, GROUP B, CAUSING DISEASES CLASSD ELSWHR Status: Acute Current Visit: Yes (3) History of miscarriage SNOMED Code(s): 309690357 Code(s): Z87.59 - PERSONAL HISTORY OF COMP OF PREG, CHLDBRTH AND THE PUERP Status: Acute Current Visit: Yes - Problem List Review Problem List Initiated/Reviewed/Updated: Yes - Assessment Assessment:: 24yo s/p normal spontaneous vaginal delivery. PPD #1. complicated by GBS+ bacteriuria, and rubella equivocal status. - Plan Plan:: Regular diet Vitals per unit routine Ibuprofen and Tylenol for pain control Assist with breast-feeding as needed Continue to monitor lochia MMR vaccine for rubella equivocal status Anticipate discharge home on day #2 David Martin, MS3 09/28/2019 8:46 am <Braden Acharya - Last Filed: 09/28/19 08:58> - Patient Data Vital Signs - Most Recent: Last Vital Signs Temp 36.3 C 09/28/19 03:31 Pulse 80 09/28/19 03:31 Resp 14 09/28/19 03:31 BP 134/77 09/28/19 03:31 Pulse Ox 100 09/28/19 03:31 I&O - Last 24 Hours: Intake & Output 09/27/19 09/28/19 09/28/19 23:59 06:59 14:59 Intake Total Balance Lab Results - Last 24 Hours: Laboratory Results - last 24 hr 09/27/19 09/28/19 Range/Units 05:38 05:40 WBC 25.23 H (3.98-10.04) K/mm3 RBC 3.58 L (3.98-5.22) M/mm3 Hgb 9.0 L D (11.2-15.7) gm/dl Hct 29.1 L (34.1-44.9) % MCV 81.3 (79.4-94.8) fl MCH 25.1 L (25.6-32.2) pg MCHC 30.9 L (32.2-35.5) g/dl RDW Std Deviation 42.5 (36.4-46.3) fL Plt Count 333 (182-369) K/mm3 MPV 10.9 (9.4-12.3) fl Neut % (Auto) 71.8 H (34.0-71.1) % Lymph % (Auto) 18.6 L (19.3-51.7) % Scott % (Auto) 8.2 (4.7-12.5) % Eos % (Auto) 0.3 L (0.7-5.8) Baso % (Auto) 0.3 (0.1-1.2) % Neut # (Auto) 18.13 H (1.56-6.13) K/mm3 Lymph # (Auto) 4.69 H (1.18-3.74) K/mm3 Scott # (Auto) 2.07 H (0.24-0.36) K/mm3 Eos # (Auto) 0.08 (0.04-0.36) K/mm3 Baso # (Auto) 0.07 (0.01-0.08) K/mm3 Manual Slide Review Abnormal smear RPR Non-reactive (NONREACTIVE) Med Orders - Current: Current Medications Acetaminophen (Tylenol) 650 mg PO Q6H PRN PRN Reason: mild pain or fever Benzocaine/Menthol (Dermoplast Pain Relief [place]) 0 gm TOP ASDIRECTED PRN PRN Reason: Perineal Comfort Measure Last Admin: 09/27/19 14:39 Dose: 1 applic Docusate Sodium (Colace) 100 mg PO BID PRN PRN Reason: Constipation Hydrocortisone Acetate (Anucort-Hc) 25 mg RECTAL BID PRN PRN Reason: Hemorrhoid pain Oxytocin/Lactated Ringer's (Pitocin In Lr 10 Units/1,000 Ml) 10 unit in 1,000 mls @ 100 mls/hr IV TITRATE ERICA; Protocol Ibuprofen (Motrin) 600 mg PO Q6H PRN PRN Reason: Mild pain or fever Last Admin: 09/28/19 06:44 Dose: 600 mg Magnesium Hydroxide (Milk Of Magnesia) 30 ml PO BEDTIME PRN PRN Reason: Constipation Prenat Multivit/[place]/Iron/Folic Ac ( Plus Iron) 1 each PO DAILY [facility] Suellen Marie (Tucks) 1 pad TOP ASDIRECTED PRN PRN Reason: Perineal Comfort Measure Last Admin: 09/27/19 14:39 Dose: 1 applic Discontinued Medications Bupivacaine HCl (Sensorcaine-Mpf 0.25%) 10 ml .ROUTE .STK-MED ONE Stop: 09/27/19 14:01 Ephedrine Sulfate (Ephedrine Sulfate) 5 mg IVPUSH ASDIRECTED PRN PRN Reason: Hypotension Fentanyl (Sublimaze) 100 mcg EPIDUR Q3H PRN PRN Reason: Pain Last Admin: 09/27/19 06:39 Dose: 100 mcg Fentanyl/Bupivacaine HCl (Fentanyl/Bupivacaine/Ns 2 Mcg-0.125% 250 Ml) 0 ml EPIDUR CONTINUOUS PRN PRN Reason: Pain Last Admin: 09/27/19 06:39 Dose: 250 ml Lactated Ringer's (Ringers, Lactated) 1,000 mls @ 100 mls/hr IV ASDIRECTED ERICA Last Admin: 09/27/19 07:37 Dose: 100 mls/hr Oxytocin/Lactated Ringer's (Pitocin In Lr 10 Units/1,000 Ml) 10 unit in 1,000 mls @ 500 mls/hr IV .CONTINUOUS ERICA Last Admin: 09/27/19 12:47 Dose: 500 mls/hr Cefazolin Sodium/Dextrose 2 gm (/ Premix) 50 mls @ 100 mls/hr IV Q4HR ERICA Last Admin: 09/27/19 08:23 Dose: Not Given Cefazolin Sodium/Dextrose 2 gm (/ Premix) 50 mls @ 100 mls/hr IV ONETIME ONE Stop: 09/27/19 06:14 Last Admin: 09/27/19 05:43 Dose: 100 mls/hr Phenylephrine HCl 1 mg/ Sodium (Chloride) 10.1 mls @ 1 mls/sec IV TITRATE ERICA; Protocol Cefazolin Sodium/Dextrose 1 gm (/ Premix) 50 mls @ 100 mls/hr IV Q8H ERICA Lidocaine HCl (Xylocaine 1%) 10 ml INJECT ONETIME ONE Stop: 09/27/19 13:01 Last Admin: 09/27/19 13:06 Dose: 10 ml Measles/Mumps/Rubella Vaccine Live (M-M-R Ii Vaccine) 0.5 ml SUBCUT .ONCE ONE Stop: 09/27/19 13:30 Nalbuphine HCl (Nubain) 10 mg IVPUSH Q2H PRN PRN Reason: Pain Ondansetron HCl (Zofran) 4 mg IVPUSH ONETIME PRN PRN Reason: Nausea/Vomiting Sodium Chloride (Saline Flush) 10 ml FLUSH ASDIRECTED PRN PRN Reason: Keep Vein Open - Problem List & Annotations (1) Rubella non-immune status, antepartum SNOMED Code(s): 619396270 Code(s): O99.89 - OTH DISEASES AND CONDITIONS COMPL PREG/CHLDBRTH; Z28.3 - UNDERIMMUNIZATION STATUS Status: Acute Current Visit: Yes (2) 37 weeks gestation of SNOMED Code(s): 75742693 Code(s): Z3A.37 - 37 WEEKS GESTATION OF Status: Acute Current Visit: Yes (3) GBS (group B streptococcus) UTI complicating SNOMED Code(s): 877926188, 61769569515265 Code(s): O23.40 - UNSP INFECTION OF URINARY TRACT IN , UNSP TRIMESTER; B95.1 - STREPTOCOCCUS, GROUP B, CAUSING DISEASES CLASSD ELSWHR Status: Acute Current Visit: Yes (4) History of miscarriage SNOMED Code(s): 109529111 Code(s): Z87.59 - PERSONAL HISTORY OF COMP OF PREG, CHLDBRTH AND THE PUERP Status: Acute Current Visit: Yes (5) Vaginal delivery SNOMED Code(s): 575418120 Code(s): O80 - ENCOUNTER FOR FULL-TERM UNCOMPLICATED DELIVERY Status: Acute Current Visit: Yes (6) Second degree perineal laceration during delivery SNOMED Code(s): 9365111 Code(s): O70.1 - SECOND DEGREE PERINEAL LACERATION DURING DELIVERY Status: Acute Current Visit: Yes (7) Laceration of periurethral tissue with delivery SNOMED Code(s): 701685322, 497925235 Code(s): O71.89 - OTHER SPECIFIED OBSTETRIC TRAUMA Status: Acute Current Visit: Yes - My Orders Last 24 Hours: My Active Orders 09/27/19 13:29 Patient Status [ADT] Routine Activity as Tolerated [RC] PER UNIT ROUTINE May Shower [RC] ASDIRECTED Notify Provider Vital Signs [RC] ASDIRECTED Vital Signs [RC] 03,09,15,21 Acetaminophen [Tylenol] 650 mg PO Q6H PRN Benzocaine/Menthol [Dermoplast Pain Relief [place]] See Dose Instructions TOP ASDIRECTED PRN Docusate Sodium [Colace] 100 mg PO BID PRN Hydrocortisone Acetate [Anucort-HC] 25 mg RECTAL BID PRN Ibuprofen [Motrin] 600 mg PO Q6H PRN Magnesium Hydroxide [Milk of Magnesia] 30 ml PO BEDTIME PRN Oxytocin/Lactated Ringers [Pitocin in LR 10 Units/1,000 ML] 10 unit in 1,000 ml IV TITRATE Witch Cynthia [Tucks] 1 pad TOP ASDIRECTED PRN Assess Lochia [WOMSER] Per Unit Routine Assess Uterine Involution [WOMSER] Per Unit Routine Breast Pump [WOMSER] Per Unit Routine Heat Therapy [OM.PC] PRN Ice Therapy [OM.PC] Per Unit Routine Medication Administration Instruction [OM.PC] Routine Perineal Care [OM.PC] Per Unit Routine Peripheral IV Discontinue [OM.PC] Routine Sitz Bath [OM.PC] Per Unit Routine 09/27/19 Lunch Regular Diet [DIET] 09/28/19 09:00 Vit with Ca/FA/Iron [ Plus Iron] 1 each PO DAILY 09/28/19 13:29 Heat Therapy [OM.PC] PRN - Plan Plan:: I have seen and evaluated the patient with the medical student and agree with the assessment and plan as per the note above. No changes needed. Braden Acharya M.D. 8:58 AM 09/28/2019
--- NOTE | 2019-09-28 11:09 | PCM48HPAN ---
Post Anesthesia Note - EVALUATION WITHIN 48HRS OF ANESTHETIC Vital Signs in Normal Range: Yes Patient Participated in Evaluation: Yes Respiratory Function Stable: Yes Airway Patent: Yes Cardiovascular Function Stable: Yes Hydration Status Stable: Yes Pain Control Satisfactory: Yes Nausea and Vomiting Control Satisfactory: Yes Mental Status Recovered: Yes Vital Signs: Last Vital Signs Temp 36.8 C 09/28/19 10:05 Pulse 84 09/28/19 10:05 Resp 14 09/28/19 10:05 BP 117/83 09/28/19 10:05 Pulse Ox 96 09/28/19 10:05
[2019-09-28] MEDS: Prenatal Multivitamin with Calcium/Folic Acid/Iron Tab PO SCH (14:59)
[2019-09-28] MEDS: Docusate Sodium 100 MG Cap PO PRN (20:49)
[2019-09-29] MEDS: Ibuprofen 600 MG Tab PO PRN (08:00)
[2019-09-29] MEDS: Prenatal Multivitamin with Calcium/Folic Acid/Iron Tab PO SCH (08:00)
[2019-09-29] MEDS: Docusate Sodium 100 MG Cap PO PRN (08:00)
--- NOTE | 2019-09-29 08:19 | PCM.SN ---
- Free Text/Narrative Note: Post Progress Note PPD # 2 Subjective: Doing well overall. Ambulating without difficulty. Lochia minimal and decreasing since yesterday. Voiding without difficulty. Tolerating regular diet without nausea or vomiting. Pain controlled with oral medications. Reports her pain is improving today. Breast-feeding with some minor difficulty but working with the nursing staff. Objective: Vitals: Vital Signs - 24 hr 09/28/19 09/28/19 09/28/19 10:05 15:03 20:47 Temperature 36.8 C 36.6 C 36.8 C Pulse, 84 88 88 Peripheral Respiratory 14 14 16 Rate Blood Pressure 117/83 130/82 131/73 O2 Sat by Pulse 96 96 99 Oximetry 09/29/19 04:00 Temperature 37.1 C Pulse, 84 Peripheral Respiratory 15 Rate Blood Pressure 127/66 O2 Sat by Pulse 97 Oximetry Physical Exam General: Alert and oriented, no acute distress Lungs: Clear to auscultation bilaterally Heart: Regular rate and rhythm Abdomen: Soft, minimal appropriate tenderness, non-distended, fundus midline, nontender, and at the umbilicus Extremities: No edema ASSESSMENT: 24-year-old female 021 s/p normal vaginal delivery PPD #2, complicated by GBS bacteria and received one total dose of Ancef prior to delivery, rubella equivocal status, obesity and history of recurrent miscarriages PLAN: Doing well Breast-feeding with minimal difficulty. Assist as needed. Patient planning to work with senior sales consultant today for breast-feeding baby. Lochia minimal. Continue to monitor for appropriate lochia. Continue routine care MMR vaccine prior to discharge if desired. Discharge home today Braden Acharya MD 8:18 AM 09/29/2019
--- NOTE | 2019-09-29 08:27 | PCM.DCSUM1 ---
Discharge Summary - Hospital Course Free Text/Narrative:: Stage I: Susana Vega was admitted for spontaneous rupture of membranes. On admission her cervix was dilated to 4 cm. She was GBS positive with GBS bacteriuria. She has an allergy to amoxicillin and was treated with Ancef 2 g IV and received a total of 1 dose prior to delivery. She was given an epidural for anesthesia. She progressed to complete and pushing. Stage II: On 09/27/2019 she had a normal vaginal delivery of a live male at 12:43. Apgars of 7 & 9. Weight of 3050 g (6 lbs 11.6 oz). Length of 21.5 inches. There was a single tight nuchal cord that was not reduced prior to delivery. Infant was delivered in ROOPA position. The cord was doubly clamped and cut by father of the infant. was placed on mother's abdomen and taken to the warmer for further resuscitation. Stage III: She had a spontaneous delivery of an intact placenta in Maribel presentation. Three vessel cord. She was given pitocin and fundal massage. She had a second-degree midline perineal laceration that was repaired with 3-0 Vicryl. There were bilateral periurethral lacerations that were hemostatic and not repaired. Mom and baby were stable to recovery. EBL of 300 mL. HPI Initial Comments: Stage I: Susana Vega was admitted for spontaneous rupture of membranes. On admission her cervix was dilated to 4 cm. She was GBS positive with GBS bacteriuria. She has an allergy to amoxicillin and was treated with Ancef 2 g IV and received a total of 1 dose prior to delivery. She was given an epidural for anesthesia. She progressed to complete and pushing. Stage II: On 09/27/2019 she had a normal vaginal delivery of a live male at 12:43. Apgars of 7 & 9. Weight of 3050 g (6 lbs 11.6 oz). Length of 21.5 inches. There was a single tight nuchal cord that was not reduced prior to delivery. Infant was delivered in ROOPA position. The cord was doubly clamped and cut by father of the . was placed on mother's abdomen and taken to the warmer for further resuscitation. Stage III: She had a spontaneous delivery of an intact placenta in Maribel presentation. Three vessel cord. She was given pitocin and fundal massage. She had a second-degree midline perineal laceration that was repaired with 3-0 Vicryl. There were bilateral periurethral lacerations that were hemostatic and not repaired. Mom and baby were stable to recovery. EBL of 300 mL. Brief History: Stage I: Susana Vega was admitted for spontaneous rupture of membranes. On admission her cervix was dilated to 4 cm. She was GBS positive with GBS bacteriuria. She has an allergy to amoxicillin and was treated with Ancef 2 g IV and received a total of 1 dose prior to delivery. She was given an epidural for anesthesia. She progressed to complete and pushing. Stage II: On 09/27/2019 she had a normal vaginal delivery of a live male at 12:43. Apgars of 7 & 9. Weight of 3050 g (6 lbs 11.6 oz). Length of 21.5 inches. There was a single tight nuchal cord that was not reduced prior to delivery. was delivered in ROOPA position. The cord was doubly clamped and cut by father of the . Infant was placed on mother's abdomen and taken to the warmer for further resuscitation. Stage III: She had a spontaneous delivery of an intact placenta in Maribel presentation. Three vessel cord. She was given pitocin and fundal massage. She had a second-degree midline perineal laceration that was repaired with 3-0 Vicryl. There were bilateral periurethral lacerations that were hemostatic and not repaired. Mom and baby were stable to recovery. EBL of 300 mL. Diagnosis: Stroke: No - Discharge Data Discharge Date: 09/29/19 Discharge Disposition: Home, Self-Care 01 Condition: Good - Referral to Home Health Primary Care Physician: Braden Acharya MD - Discharge Diagnosis/Problem(s) (1) Rubella non-immune status, antepartum SNOMED Code(s): 104111950 ICD Code: O99.89 - OTH DISEASES AND CONDITIONS COMPL PREG/CHLDBRTH; Z28.3 - UNDERIMMUNIZATION STATUS Status: Acute (2) 37 weeks gestation of SNOMED Code(s): 11379760 ICD Code: Z3A.37 - 37 WEEKS GESTATION OF Status: Acute (3) GBS (group B streptococcus) UTI complicating SNOMED Code(s): 198234871, 98269703465016 ICD Code: O23.40 - UNSP INFECTION OF URINARY TRACT IN , UNSP TRIMESTER; B95.1 - STREPTOCOCCUS, GROUP B, CAUSING DISEASES CLASSD ELSWHR Status: Acute (4) History of miscarriage SNOMED Code(s): 851556982 ICD Code: Z87.59 - PERSONAL HISTORY OF COMP OF PREG, CHLDBRTH AND THE PUERP Status: Acute (5) Vaginal delivery SNOMED Code(s): 173504507 ICD Code: O80 - ENCOUNTER FOR FULL-TERM UNCOMPLICATED DELIVERY Status: Acute (6) Second degree perineal laceration during delivery SNOMED Code(s): 1065823 ICD Code: O70.1 - SECOND DEGREE PERINEAL LACERATION DURING DELIVERY Status : Acute (7) Laceration of periurethral tissue with delivery SNOMED Code(s): 771439216, 745781593 ICD Code: O71.89 - OTHER SPECIFIED OBSTETRIC TRAUMA Status: Acute - Patient Summary/Data Complications: None Consults: None Hospital Course: Susana Vega was admitted for spontaneous rupture membranes with clear fluid. On admission her cervix was dilated to 4 cm. She was GBS positive with GBS bacteria. She has an allergy to amoxicillin and was treated with Ancef 2 g IV and received 1 dose prior to delivery. She was given an epidural for anesthesia. She progressed to complete and began pushing. On 09/27/2019 she had a normal vaginal delivery of a live male infant at 12:43. Apgars of 7 and 9. Weight of 3050 g (6 pounds 11.6 ounces). Her course was uneventful. Her pain was well controlled and she had minimal lochia. She was ambulating, tolerating a regular diet and voiding normally. She was breast- feeding with minimal difficulty. She was afebrile and her hematocrit was 29.1 on day #1. She desired to be discharged home on the morning of PPD # 2. Her blood type is A+. She is rubella equivocal and declined MMR vaccine prior to discharge. She was given influenza vaccine prior to discharge. - Patient Instructions Diet: Regular Diet as Tolerated Activity: Apply Ice, As Tolerated Activity, Other: Nothing in the vagina for 6 weeks Driving: May Drive Today Showering/Bathing: May Shower Notify Provider of: Fever, Increased Pain, Swelling and Redness, Drainage, Nausea and/or Vomiting Other/Special Instructions: Please contact your physician's office if you have heavy vaginal bleeding enough to soak a pad in less than an hour for several hours. Monitor for any signs of an infection in the breasts with severe pain or redness of the breast. - Discharge Plan *PRESCRIPTION DRUG MONITORING PROGRAM REVIEWED*: Not Applicable *COPY OF PRESCRIPTION DRUG MONITORING REPORT IN PATIENT FANTA: Not Applicable Home Medications: Home Meds Pnv No.122/Iron/Folic Acid [ Multi Tablet] 1 each PO DAILY 09/27/19 [ History] Acetaminophen [Tylenol] 650 mg PO Q6H PRN tablet 09/29/19 [Rx] Benzocaine/Menthol [Dermoplast Pain Relief [place]] 1 spray TOP ASDIRECTED PRN canister 09/29/19 [Rx] Docusate Sodium [Colace] 100 mg PO BID PRN cap 09/29/19 [Rx] Hydrocortisone Acetate [Anucort-HC] 25 mg RECTAL BID PRN supp 09/29/19 [Rx] Ibuprofen [Motrin] 600 mg PO Q6H PRN tablet 09/29/19 [Rx] Witch Cynthia [Tucks] 1 pad TOP ASDIRECTED PRN pad 09/29/19 [Rx] Patient Handouts: Vaginal Delivery, Care After, Care of a Perineal Tear Referrals: Braden Acharya MD [Primary Care Provider] - (Follow-up in 2 weeks for routine visit or earlier as needed.) - Discharge Summary/Plan Comment DC Time >30 min.: No - Patient Data Vitals - Most Recent: Last Vital Signs Temp 37.1 C 09/29/19 04:00 Pulse 84 09/29/19 04:00 Resp 15 09/29/19 04:00 BP 127/66 09/29/19 04:00 Pulse Ox 97 09/29/19 04:00 Weight - Most Recent: 99.065 kg I&O - Last 24 hours: Intake & Output 09/28/19 09/29/19 09/29/19 22:59 06:59 14:59 Intake Total 240 Balance 240 Med Orders - Current: Current Medications Acetaminophen (Tylenol) 650 mg PO Q6H PRN PRN Reason: mild pain or fever Benzocaine/Menthol (Dermoplast Pain Relief [place]) 0 gm TOP ASDIRECTED PRN PRN Reason: Perineal Comfort Measure Last Admin: 09/27/19 14:39 Dose: 1 applic Docusate Sodium (Colace) 100 mg PO BID PRN PRN Reason: Constipation Last Admin: 09/29/19 08:00 Dose: 100 mg Hydrocortisone Acetate (Anucort-Hc) 25 mg RECTAL BID PRN PRN Reason: Hemorrhoid pain Oxytocin/Lactated Ringer's (Pitocin In Lr 10 Units/1,000 Ml) 10 unit in 1,000 mls @ 100 mls/hr IV TITRATE ERICA; Protocol Ibuprofen (Motrin) 600 mg PO Q6H PRN PRN Reason: Mild pain or fever Last Admin: 09/29/19 08:00 Dose: 600 mg Magnesium Hydroxide (Milk Of Magnesia) 30 ml PO BEDTIME PRN PRN Reason: Constipation Prenat Multivit/[place]/Iron/Folic Ac ( Plus Iron) 1 each PO DAILY ERICA Last Admin: 09/29/19 08:00 Dose: 1 each Witch Cynthia (Tucks) 1 pad TOP ASDIRECTED PRN PRN Reason: Perineal Comfort Measure Last Admin: 09/27/19 14:39 Dose: 1 applic Discontinued Medications Bupivacaine HCl (Sensorcaine-Mpf 0.25%) 10 ml .ROUTE .[facility] Stop: 09/27/19 14:01 Ephedrine Sulfate (Ephedrine Sulfate) 5 mg IVPUSH ASDIRECTED PRN PRN Reason: Hypotension Fentanyl (Sublimaze) 100 mcg EPIDUR Q3H PRN PRN Reason: Pain Last Admin: 09/27/19 06:39 Dose: 100 mcg Fentanyl/Bupivacaine HCl (Fentanyl/Bupivacaine/Ns 2 Mcg-0.125% 250 Ml) 0 ml EPIDUR CONTINUOUS PRN PRN Reason: Pain Last Admin: 09/27/19 06:39 Dose: 250 ml Lactated Ringer's (Ringers, Lactated) 1,000 mls @ 100 mls/hr IV ASDIRECTED ERICA Last Admin: 09/27/19 07:37 Dose: 100 mls/hr Oxytocin/Lactated Ringer's (Pitocin In Lr 10 Units/1,000 Ml) 10 unit in 1,000 mls @ 500 mls/hr IV .CONTINUOUS ERICA Last Admin: 09/27/19 12:47 Dose: 500 mls/hr Cefazolin Sodium/Dextrose 2 gm (/ Premix) 50 mls @ 100 mls/hr IV Q4HR ERICA Last Admin: 09/27/19 08:23 Dose: Not Given Cefazolin Sodium/Dextrose 2 gm (/ Premix) 50 mls @ 100 mls/hr IV ONETIME ONE Stop: 09/27/19 06:14 Last Admin: 09/27/19 05:43 Dose: 100 mls/hr Phenylephrine HCl 1 mg/ Sodium (Chloride) 10.1 mls @ 1 mls/sec IV TITRATE ERICA; Protocol Cefazolin Sodium/Dextrose 1 gm (/ Premix) 50 mls @ 100 mls/hr IV Q8H ERICA Lidocaine HCl (Xylocaine 1%) 10 ml INJECT ONETIME ONE Stop: 09/27/19 13:01 Last Admin: 09/27/19 13:06 Dose: 10 ml Measles/Mumps/Rubella Vaccine Live (M-M-R Ii Vaccine) 0.5 ml SUBCUT .ONCE ONE Stop: 09/27/19 13:30 Nalbuphine HCl (Nubain) 10 mg IVPUSH Q2H PRN PRN Reason: Pain Ondansetron HCl (Zofran) 4 mg IVPUSH ONETIME PRN PRN Reason: Nausea/Vomiting Sodium Chloride (Saline Flush) 10 ml FLUSH ASDIRECTED PRN PRN Reason: Keep Vein Open
[2019-09-29] MEDS ORDERED: FLU Vacc QS2019-20(6MOS+)/PF 60 MCG/0.5 ML SYRINGE IM ONE (13:24)
== END 2019-09-29 14:20 | disposition home or self-care (01) | DRG 560 ==
LOC: JD.OB 04:11 → JD.OBCHECK 04:11 → JD.OB 05:21 → OBSVTOIN 12:43 → JD.MS 12:44 → JD.OB 17:41
PROVIDERS: ADMIT Obstetrics & Gynecology; ATTEND Obstetrics & Gynecology
PROC: 10E0XZZ Delivery of Products of Conception, External Approach (ICD-10-PCS; principal; 2019-09-27)
PROC: 0KQM0ZZ Repair Perineum Muscle, Open Approach (ICD-10-PCS; 2019-09-27)
PROC: 3E0R3BZ Introduction of Anesthetic Agent into Spinal Canal, Percutaneous Approach (ICD-10-PCS; 2019-09-27)
PROC: 3E02340 Introduction of Influenza Vaccine into Muscle, Percutaneous Approach (ICD-10-PCS; 2019-09-28)
PROC: 3E0234Z Introduction of Serum, Toxoid and Vaccine into Muscle, Percutaneous Approach (ICD-10-PCS; 2019-09-28)
DX: O98.82 Other maternal infectious and parasitic diseases complicating childbirth (principal); B95.1 Streptococcus, group B, as the cause of diseases classified elsewhere; O75.3 Other infection during labor; N39.0 Urinary tract infection, site not specified; O70.1 Second degree perineal laceration during delivery; O71.82 Other specified trauma to perineum and vulva; O69.1XX0 Labor and delivery complicated by cord around neck, with compression, not applicable or unspecified; O99.214 Obesity complicating childbirth; E66.9 Obesity, unspecified; Z37.0 Single live birth; Z3A.37 37 weeks gestation of pregnancy; Z23 Encounter for immunization
CPT/HCPCS: 01967; 36415; 51701; 51702; 59025; 59409; 81001; 84112; 85025; 86592; 90686; 90707; A9270-GY; J0690; J2001; J2590; J3010; J3490; J7120

== ENCOUNTER 2021-01-26 22:50 | Inpatient (IN) | payer BC ==
[2021-01-26] MEDS ORDERED: Nalbuphine 10 MG/1 ML Vial IVPUSH PRN (23:16)
[2021-01-26] MEDS ORDERED: Sodium Chloride 0.9% 10 ML Syringe FLUSH PRN (23:16)
--- NOTE | 2021-01-26 23:24 | PCM.LDHP ---
L&D History of Present Illness - General Date of Service: 01/26/21 Admit Problem/Dx: Admission Diagnosis/Problem Admission Diagnosis/Problem - History of Present Illness Introduction:: 25 year old at 38w3d presented to hospital complaining she has to push. PNC with Dr Acharya without complications other than elevated one hour normal three hour. On arrival 10 cm dilated. - Related Data Allergies/Adverse Reactions: Allergies Allergy/AdvReac Type Severity Reaction Status Date / Time amoxicillin Allergy Swelling Verified 09/27/19 05:24 Home Medications: Home Meds No122/Iron/Folic Acid [ Multi Tablet] 1 each PO DAILY 09/27/19 [History] Acetaminophen [Tylenol] 650 mg PO Q6H PRN tablet 09/29/19 [Rx] Benzocaine/Menthol [Dermoplast Pain Relief [place]] 1 spray TOP ASDIRECTED PRN canister 09/29/19 [Rx] Docusate Sodium [Colace] 100 mg PO BID PRN cap 09/29/19 [Rx] Hydrocortisone Acetate [Anucort-HC] 25 mg RECTAL BID PRN supp 09/29/19 [Rx] Ibuprofen [Motrin] 600 mg PO Q6H PRN tablet 09/29/19 [Rx] witch Velma [Tucks] 1 pad TOP ASDIRECTED PRN pad 09/29/19 [Rx] 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: , 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 - Past Surgical History Female Surgical History: Reports: D&C Social & Family History - Family History Family Medical History: No Pertinent Family History Endocrine/Metabolic: Reports: Diabetes, type II (Father, Paternal and maternal grandparents) Other Endocrine/Metabolic Family History: Sister has unspecified thyroid disease Oncologic: Reports: Brain (maternal uncle), Skin (Mother), Other (See Below) (Mother- bladder cancer) H&P Review of Systems - Review of Systems: Review Of Systems: See Below General: Denies: Fever, Chills HEENT: Reports: No Symptoms Pulmonary: Reports: No Symptoms Cardiovascular: Reports: No Symptoms Gastrointestinal: Reports: No Symptoms Genitourinary: Reports: No Symptoms Musculoskeletal: Reports: No Symptoms Skin: Reports: No Symptoms Psychiatric: Reports: No Symptoms Neurological: Reports: No Symptoms Hematologic/Lymphatic: Reports: No Symptoms Immunologic: Reports: No Symptoms L&D Exam - Exam Exam: See Below - OB Specific Contraction Intensity: Strong Movement: Active Heart Tones: Present Heart Tones per Min: 145 Presentation: Vertex - Cunningham Score Cunningham Score Consistency: Soft Cunningham Score Effacement: >80% Cunningham Score Dilation: > 5 cm Cunningham Score 's Station: +1, +2 - Exam General: Alert, Oriented HEENT: PERRLA, Conjunctiva Clear, EACs Clear, EOMI, Hearing Intact, Mucosa Moist & [place], Nares Patent, Normal Nasal Septum, Posterior Pharynx Clear, TMs Clear Neck: Supple, Trachea Midline Lungs: Clear to Auscultation, Normal Respiratory Effort Cardiovascular: Regular Rate, Regular Rhythm GI/Abdominal Exam: Normal Bowel Sounds, Soft, Non-Tender, No Organomegaly, No Distention, No Abnormal Bruit, No Mass, Pelvis Stable Back Exam: Normal Inspection, Full Range of Motion Extremities: Normal Inspection, Normal Range of Motion, Non-Tender, No Pedal Ed artie, Normal Capillary Refill Skin: Warm, Dry, Intact Neurological: Cranial Nerves Intact, Reflexes Equal Bilateral Psychiatric: Alert, Normal Affect, Normal Mood Problem List Initiated/Reviewed/Updated: Yes Orders Last 24hrs: Active Orders 24 hr Category Date Time Status Activity as Tolerated [RC] PFP Care 01/26/21 23:16 Ordered Communication Order [RC] ASDIRECTED Care 01/26/21 23:16 Ordered Heart Tones [RC] ASDIRECTED Care 01/26/21 23:16 Ordered Non Stress Test [RC] PER UNIT ROUTINE Care 01/26/21 23:16 Ordered Notify Provider [RC] PFP Care 01/26/21 23:16 Ordered Notify Provider [RC] PRN Care 01/26/21 23:16 Ordered Peripheral IV Care [RC] . DIRECTED Care 01/26/21 23:16 Ordered Vital Signs [RC] PER UNIT ROUTINE Care 01/26/21 23:16 Ordered Nothing Per Oral Diet [DIET] Diet 01/26/21 Breakfast Ordered CORONAVIRUS COVID-19 [place] [MOLEC] Stat Lab 01/26/21 23:18 Ordered RAPID PLASMA REAGIN,RPR [CHEM] Routine Lab 01/26/21 23:16 Ordered Lactated Ringers [Ringers, Lactated] 1,000 ml Med 01/26/21 23:30 Ordered IV ASDIRECTED Nalbuphine [Nubain] Med 01/26/21 23:16 Ordered 10 mg IVPUSH Q2H PRN Oxytocin/Lactated Ringers [Pitocin in LR 10 Units/1,000 Med 01/26/21 23:30 Ordered ML] 10 unit in 1,000 ml IV .CONTINUOUS Sodium Chloride 0.9% [Saline Flush] Med 01/26/21 23:16 Ordered 10 ml FLUSH ASDIRECTED PRN Electronic Heart Tones Ext w TOCO [WOMSER] Oth 01/26/21 23:16 Ordered Routine Electronic Heart Tones Internal [WOMSER] Per Unit Oth 01/26/21 23:16 Ordered Routine Peripheral IV Insertion Adult [OM.PC] Routine Oth 01/26/21 23:16 Ordered Resuscitation Status Routine Resus Stat 01/26/21 23:16 Ordered Medication Orders Oxytocin/Lactated Ringer's (Pitocin In Lr 10 Units/1,000 Ml) 10 unit in 1,000 mls @ 100 mls/hr IV .CONTINUOUS ERICA Lactated Ringer's (Ringers, Lactated) 1,000 mls @ 100 mls/hr IV ASDIRECTED ERICA Nalbuphine HCl (Nubain) 10 mg IVPUSH Q2H PRN PRN Reason: Pain Sodium Chloride (Saline Flush) 10 ml FLUSH ASDIRECTED PRN PRN Reason: Keep Vein Open Assessment/Plan Comment:: Term labor. Presented complete. Arrival to hospital at 1055. IV placed. Rapid delivery at 1105.
--- NOTE | 2021-01-26 23:27 | PCM.SN.2 ---
- Free Text/Narrative Note: Stage I - Patient presented in active labor. Found to be completely dilated. IV placed. Stage II - of viable female, weight 2910 at 2305 with 8/9 apgars. Head delivered in controlled manner over intact perineum. Body and shoulders atraumatically. Positive cry. To maternal abdomen. Cord clamped and cut. Cord blood collected. Stage III - of intact placenta. 3vc. No laceration. EBL 100
[2021-01-26] MEDS ORDERED: Lactated Ringers 1,000 ML IV SCH (23:30)
[2021-01-26] MEDS ORDERED: Oxytocin/Lactated Ringers 10 UNIT/1,000 ML BAG IV SCH (23:30)
--- NOTE | 2021-01-27 02:56 | PCM.PNPP ---
- General Info Date of Service: 01/27/21 Functional Status: Reports: Pain Controlled - Review of Systems General: Reports: No Symptoms HEENT: Reports: No Symptoms Pulmonary: Reports: No Symptoms Cardiovascular: Reports: No Symptoms Gastrointestinal: Reports: No Symptoms Genitourinary: Reports: No Symptoms Musculoskeletal: Reports: No Symptoms Skin: Reports: No Symptoms Neurological: Reports: No Symptoms Psychiatric: Reports: No Symptoms - General Info Date of Service: 01/27/21 - Patient Data Vital Signs - Most Recent: Last Vital Signs Temp 36.8 C 01/26/21 23:07 Pulse 89 01/26/21 23:07 Resp 18 01/26/21 23:07 BP 133/73 01/26/21 23:07 Pulse Ox Lab Results - Last 24 Hours: Laboratory Results - last 24 hr 01/27/21 Range/Units 00:40 SARS-CoV-2 RNA ([place]) Negative (NEGATIVE) Med Orders - Current: Current Medications Oxytocin/Lactated Ringer's (Pitocin In Lr 10 Units/1,000 Ml) 10 unit in 1,000 mls @ 100 mls/hr IV .CONTINUOUS ERICA Last Admin: 01/26/21 23:07 Dose: 100 mls/hr Documented by: Lactated Ringer's (Ringers, Lactated) 1,000 mls @ 100 mls/hr IV ASDIRECTED ERICA Nalbuphine HCl (Nubain) 10 mg IVPUSH Q2H PRN PRN Reason: Pain Sodium Chloride (Saline Flush) 10 ml FLUSH ASDIRECTED PRN PRN Reason: Keep Vein Open - Interaction Support Person: - Exam General: Alert, Oriented HEENT: Pupils Equal Neck: Supple Lungs: Normal Respiratory Effort Cardiovascular: Regular Rate GI/Abdominal Exam: Soft, Non-Tender, No Organomegaly, No Distention, No Abnormal Bruit, No Mass, Pelvis Stable Extremities: Normal Inspection, Normal Range of Motion, Non-Tender, No Pedal Edema, Normal Capillary Refill Skin: Warm, Dry, Intact Wound/Incisions: Healing Well Neurological: No New Focal Deficit Psy/Mental Status: Alert, Normal Affect, Normal Mood - Problem List Review Problem List Initiated/Reviewed/Updated: Yes - My Orders Last 24 Hours: My Active Orders 01/26/21 Breakfast Nothing Per Oral Diet [DIET] 01/26/21 23:16 Activity as Tolerated [RC] PFP Communication Order [RC] ASDIRECTED Heart Tones [RC] ASDIRECTED Non Stress Test [RC] PER UNIT ROUTINE Notify Provider [RC] PFP Notify Provider [RC] PRN Peripheral IV Care [RC] . DIRECTED Vital Signs [RC] PER UNIT ROUTINE Nalbuphine [Nubain] 10 mg IVPUSH Q2H PRN Sodium Chloride 0.9% [Saline Flush] 10 ml FLUSH ASDIRECTED PRN Electronic Heart Tones Ext w TOCO [WOMSER] Routine Electronic Heart Tones Internal [WOMSER] Per Unit Routine Peripheral IV Insertion Adult [OM.PC] Routine Resuscitation Status Routine 01/26/21 23:30 Lactated Ringers [Ringers, Lactated] 1,000 ml IV ASDIRECTED Oxytocin/Lactated Ringers [Pitocin in LR 10 Units/1,000 ML] 10 unit in 1,000 ml IV .CONTINUOUS 01/26/21 23:37 RAPID PLASMA REAGIN,RPR [CHEM] Routine 01/27/21 01:31 Admission Status [Patient Status] [ADT] Routine 01/27/21 02:51 Patient Status Manage Transfer [TRANSFER] Routine - Assessment Assessment:: PPD1 Doing well. Minimal complaints. Probable discharge tomorrow - Plan Plan:: Term labor. Presented complete. Arrival to hospital at 1055. IV placed. Rapid delivery at 1105. Discharge tomorrow (PPD2)
[2021-01-27] MEDS ORDERED: Benzocaine/Menthol 20%-0.5% Spray 56 GM Canister TOP PRN (04:36)
[2021-01-27] MEDS ORDERED: Witch Hazel Medicated Pads 40/Jar TOP PRN (04:36)
[2021-01-27] MEDS ORDERED: Acetaminophen 325 MG Tab PO PRN (04:36)
[2021-01-27] MEDS ORDERED: Ibuprofen 600 MG Tab PO PRN (04:36)
--- NOTE | 2021-01-28 09:01 | PCM.DCSUM1 ---
Discharge Summary - Hospital Course Free Text/Narrative:: Sravani is a 25-year-old 4 now para 2-0-2-2 female who was admitted at 38-3/7 weeks gestational age in active labor. She had an unremarkable labor pattern. Stage I - Patient presented in active labor. Found to be completely dilated. IV placed. Stage II - of viable female, weight 2910 at 2305 with 8/9 apgars. Head delivered in controlled manner over intact perineum. Body and shoulders atraumatically. Positive cry. To maternal abdomen. Cord clamped and cut. Cord blood collected. Stage III - of intact placenta. 3vc. No laceration. EBL 100 patient has done well. She is nursing without problems, has minimal lochia, is voiding well and is ambulating without concerns. She is desiring discharge home. Diagnosis: Stroke: No - Discharge Data Discharge Date: 01/28/21 Discharge Disposition: Home, Self-Care 01 Condition: Good - Referral to Home Health Primary Care Physician: Ashley Zepeda MD - Patient Instructions Diet: Regular Diet as Tolerated (Nursing diet with increased calories and calcium as recommended) Activity: As Tolerated Driving: May Drive Today Showering/Bathing: May Shower Notify Provider of: Fever, Increased Pain, Swelling and Redness, Drainage, Nausea and/or Vomiting - Discharge Plan Home Medications: Home Meds No122/Iron/Folic Acid [ Multi Tablet] 1 each PO DAILY 09/27/19 [History] Acetaminophen [Tylenol] 650 mg PO Q4H PRN tablet 01/28/21 [Rx] Benzocaine/Menthol [Dermoplast Pain Relief [place]] 1 applic TOP ASDIRECTED PRN canister 01/28/21 [Rx] Ibuprofen [Motrin] 600 mg PO Q6H PRN tablet 01/28/21 [Rx] witch Velma [Tucks] 1 pad TOP ASDIRECTED PRN pad 01/28/21 [Rx] Patient Handouts: Care After Vaginal Delivery Referrals: Braden Acharya MD [Physician] - (Return to clinic[facility] weeks.) - Discharge Summary/Plan Comment DC Time >30 min.: No Discharge Summary/Plan Comment: Discharge instructions: 1. Discharge home 2. Diet, activity and follow-up discussed with patient. Recommend nursing diet with increased calories and calcium. 3. Precautions given concern increased pain, bleeding, temperature, signs/symptoms of DVT/PE. 4. Medications per home medication was printed, discussed with and given to the patient. 5. Return to clinic-[facility]. Ach[facility] in 2 weeks. Diagnosis: Term -delivered Condition: Good - Patient Data Vitals - Most Recent: Last Vital Signs Temp 36.4 C 01/28/21 03:12 Pulse 77 01/28/21 03:12 Resp 16 01/28/21 03:12 BP 119/68 01/28/21 03:12 Pulse Ox 97 01/28/21 03:12 Weight - Most Recent: 100.244 kg I&O - Last 24 hours: Intake & Output 01/27/21 01/28/21 01/28/21 22:59 06:59 14:59 Intake Total 240 Balance 240 Lab Results - Last 24 hrs: Laboratory Results - last 24 hr 01/26/21 Range/Units 23:37 RPR Non-reactive (NONREACTIVE) Med Orders - Current: Current Medications Acetaminophen (Tylenol) 650 mg PO Q4H PRN PRN Reason: mild pain or fever Last Admin: 01/28/21 03:15 Dose: 650 mg Documented by: Benzocaine/Menthol (Dermoplast Pain Relief [place]) 0 gm TOP ASDIRECTED PRN PRN Reason: Perineal Comfort Measure Ibuprofen (Motrin) 600 mg PO Q6H PRN PRN Reason: Mild pain or fever Last Admin: 01/27/21 05:34 Dose: 600 mg Documented by: Suellen Marie (Rhonda) 1 pad TOP ASDIRECTED PRN PRN Reason: Pain Discontinued Medications Oxytocin/Lactated Ringer's (Pitocin In Lr 10 Units/1,000 Ml) 10 unit in 1,000 m ls @ 100 mls/hr IV .CONTINUOUS ERICA Last Admin: 01/26/21 23:07 Dose: 100 mls/hr Documented by: Lactated Ringer's (Ringers, Lactated) 1,000 mls @ 100 mls/hr IV ASDIRECTED ERICA Nalbuphine HCl (Nubain) 10 mg IVPUSH Q2H PRN PRN Reason: Pain Sodium Chloride (Saline Flush) 10 ml FLUSH ASDIRECTED PRN PRN Reason: Keep Vein Open
== END 2021-01-28 09:31 | disposition home or self-care (01) | DRG 560 ==
LOC: JD.OBCHECK 22:50 → JD.OB 22:55 → JD.OBCHECK 23:14
PROVIDERS: ADMIT Obstetrics & Gynecology; ATTEND Obstetrics & Gynecology
PROC: 10E0XZZ Delivery of Products of Conception, External Approach (ICD-10-PCS; principal; 2021-01-26)
DX: O80 Encounter for full-term uncomplicated delivery (principal); Z88.0 Allergy status to penicillin; Z20.822 Contact with and (suspected) exposure to COVID-19; Z37.0 Single live birth; Z3A.38 38 weeks gestation of pregnancy
CPT/HCPCS: 36415; 59025; 59409; 86592; A9270-GY; J2590; U0002